=== PATIENT | female | born 1940 | race Caucasian/White ===

== ENCOUNTER 2020-11-03 18:25 | Inpatient (IN) | payer OTHER ==
[~2020-11-03] VITALS: Ht 167.6 cm; Wt 75.3 kg
[2020-11-03] MEDS ORDERED: LIPITOR40 MG PO (22:01)
[2020-11-03] MEDS ORDERED: GLYBURIDE 5 MG T5 M1 PO (22:03)
[2020-11-03] MEDS ORDERED: MAGNESIUM400 M1 PO (22:04)
[2020-11-03] MEDS ORDERED: METFORMIN HCL500 M3 PO (22:05)
[2020-11-03] MEDS ORDERED: SYNTHROID50 MCG PO (22:06)
[2020-11-03] MEDS ORDERED: VASERETIC 5-121 EACH PO (22:07)
--- NOTE | 2020-11-04 00:44 | NUR ---
Pt admitted from [facility] at 2030 via stretcher accompanied by EMS. A/OX4,VSS. Pt does get dyspnea on exertion,on 3L/NC on admision put titrated down to 2L/NC by RT. Denies pain on assessment.Up with SBA, RW/GB to bathroom. Complaints of dehydration from not eating/drinking much for 2 days,IVF infusing only complete the one bag from EMS per [facility]. NSR with PVCs on telemetry. Resting w/o any distress noted. Pt to transfer to [facility] per [facility] for higher care. Will update pt.
[2020-11-04] MEDS ORDERED: ASA81BEC PO (01:34)
[2020-11-04 01:41] LABS: URINE BILIRUBIN NEGATIVE (Negative); URINE BLOOD NEGATIVE (Negative); URINE CLARITY CLEAR; URINE COLOR YELLOW; URINE GLUCOSE-RANDOM* NEGATIVE (Negative); URINE KETONES NEGATIVE (Negative); URINE LEUKOCYTES 1+ (Negative); URINE NITRITE NEGATIVE (Negative); URINE PROTEIN (DIPSTICK) NEGATIVE (Negative); URINE SPECIFIC GRAVITY >= 1.030 (1.005-1.035); URINE UROBILINOGEN 0.2 E.U./dl (0.2-1.0)
--- NOTE | 2020-11-04 01:59 | NUR ---
PT TRANSFERRED FROM 4TH FLOOR. PT AOX4. O2 PER NC. IVF INTACT. LUNGS WITH WHEEZES. PT HAD BM. SOA WITH EXERTION ENCOURAGED TO CONTINUE USE OF BSC. PT VERBALIZED UNDERSTANDING OF NPO STATUS.
[2020-11-04 02:01] VITALS: BP 145/80
[2020-11-04 02:19] LABS: SQUAMOUS 4-10 Moderate /LPF (0-3); URINE RBC 3-10 Few /HPF (NONE SEEN); URINE WBC 6-15 Few /HPF (NONE SEEN); WBC CLUMPS Few (None Seen)
[2020-11-04 02:20] LABS: CASTS None Seen /LPF (None Seen); CRYSTALS None Seen /LPF (None Seen); MUCUS 4-6 Moderate strn/LPF (None Seen)
[2020-11-04 03:37] VITALS: BP 138/63
[2020-11-04 07:17] VITALS: BP 165/77
[2020-11-04 08:49] LABS: HEMATOCRIT 41.2 % (37.0-47.0); HEMOGLOBIN 13.7 gm/dL (12.0-15.0); MCH 30.4 pg (26.0-34.0); MCHC 33.3 g/dL (28.0-37.0); MCV 91.2 fL (80.0-100.0); RBC 4.52 mil/uL (4.20-5.00); RDW 13.7 % (10.5-14.5); WBC 11.3 thou/uL (4.0-11.0)
[2020-11-04 08:59] LABS: INR 0.98; PROTIME 10.7 Seconds (10.5-12.1)
[2020-11-04 09:10] LABS: ALBUMIN 2.8 g/dL (3.4-5.0); CALCIUM 8.8 mg/dL (8.5-10.1); CREATININE 0.8 mg/dL (0.6-1.0); TOTAL BILIRUBIN 0.5 mg/dL (0.2-1.0); TOTAL PROTEIN 6.2 g/dL (6.4-8.2)
[2020-11-04 11:32] VITALS: BP 160/73
[2020-11-04 12:54] LABS: CLARITY CLOUDY; COLOR BROWN; SOURCE THORACENTESIS; TOTAL VOLUME 65 mL
[2020-11-04 13:10] LABS: BF NUCLEATED CELLS 553 /mm3; BF RBC 38600 /mm3
--- NOTE | 2020-11-04 14:02 | 2DMMODE ---
[facility] [address] [address] 2 D/M-MODE ECHOCARDIOGRAM Name: PATITO SHERMAN Room #: 360-P ADM IN M.R.#: [id number] Admission: 11/03/20 Attend Phys: Mao Sandoval Discharge: Date of : 40 Report #: [id number] THIS REPORT FOR: cc: FAM - No family physician/PCP FAM - No family physician/PCP Albert Hernandez MD ~ APPROVED REPORT Study performed: 11/04/2020 13:11:57 EXAM: Comprehensive 2D, Doppler, and color-flow Echocardiogram Patient Location: Bedside Room #: 360 Status: routine BSA: 1.81 HR: 54 bpm BP: 160/73 mmHg Rhythm: NSR Other Information Study Quality: Adequate Indications Short of breath. Pleural effusion. Hx: HTN, HLP, DM. 2D Dimensions RVDd: 33.55 mm IVSd: 12.02 (7-11mm) LVOT Diam: 18.96 (18-24mm) LVDd: 38.91 mm PWd: 8.53 (7-11mm) Ascending Ao: 29.17 (22-36mm) LVDs: 26.91 (25-40mm) Left Atrium: 32.54 (27-40mm) Aortic Root: 28.15 mm Volumes Left Atrial Volume (Systole) Single Plane 4CH: 43.42 mL Single Plane 2CH: 47.19 mL LA ESV Index: 26.00 mL/m2 Aortic Valve AoV Peak Vijay.: 1.99 m/s AO Peak Gr.: 15.86 mmHg LVOT Max P.90 mmHg AO Mean Gr.: 8.15 mmHg [facility] [address] [place] [address] 2 D/M-MODE ECHOCARDIOGRAM Name: PATITO SHERMAN Room #: 360-P [facility] IN .R.#: [id number] Admission: 11/03/20 Attend Phys: Mao Joseph Mar Discharge: Date of : 40 Report #: [id number] AO V2 Mean: 1.34 m/s LVOT Max V: 1.41 m/s AO V2 VTI: 45.11 cm MAY Vmax: 1.99 cm2 Mitral Valve E/A Ratio: 0.8 MV Decel. Time: 282.17 ms MV E Max Vijay.: 0.85 m/s MV A Vijay.: 1.12 m/s MV PHT: 81.83 ms IVRT: 78.43 ms Pulmonary Valve PV Peak Vijay.: 1.20 m/s PV Peak Gr.: 5.74 mmHg Pulmonary Vein P Vein S: 0.52 m/s P Vein A: 0.32 m/s P Vein D: 0.30 m/s P Vein A Dur.: 124.6 msec P Vein S/D Ratio: 1.73 Tricuspid Valve TR Peak Vijay.: 2.28 m/s RAP Estimate: 5.00 mmHg TR Peak Gr.: 21.00 mmHg PA Pressure: 26.00 mmHg Left Ventricle The left ventricle is normal size. There is normal LV segmental wall motion. Mild basal septal hypertrophy is present. Left ventricular systolic function is normal. LVEF is 60%. Mild diastolic dysfunction is present (impaired relaxation pattern). Right Ventricle The right ventricle is normal size. The right ventricular systolic function is normal. Atria The left atrium size is normal. The right atrium size is normal. Aortic Valve Aortic valve is mildly calcified. No aortic regurgitation is present. There is no aortic valvular stenosis. Mitral Valve The mitral valve is normal in structure. Mild mitral annular calcification. Mild mitral regurgitation. No evidence of mitral valve [address] [address] 2 D/M-MODE ECHOCARDIOGRAM Name: PATITO SHERMAN Room #: 360-P [facility] IN .R.#: [id number] Admission: 11/03/20 Attend Phys: Mao Vicente Discharge: Date of : 40 Report #: [id number] stenosis. Tricuspid Valve The tricuspid valve is normal in structure. Trace tricuspid regurgitation. Estimated PAP is 26mmHg. Pulmonic Valve The pulmonary valve is normal in structure. Trace pulmonic regurgitation. Great Vessels The aortic root is normal in size. The ascending aorta is normal in size. IVC is normal in size and collapses >50% with inspiration. Pericardium There is no pericardial effusion. <Conclusion> The left ventricle is normal size. Left ventricular systolic function is normal. Mild diastolic dysfunction is present (impaired relaxation pattern). The right ventricle is normal size. The left atrium size is normal. Aortic valve is mildly calcified. Mild mitral regurgitation. Trace tricuspid regurgitation. Estimated PAP is 26mmHg. <ELECTRONICALLY SIGNED> By: Albert Hernandez MD 11/04/20 1402 140 140 Albert Hernandez MD /INF
[2020-11-04 15:27] VITALS: BP 146/66
--- NOTE | 2020-11-04 17:48 | NUR ---
ASSUMED PATIENT CARE AT 0700. A/O X4. PLEASANT. HAD THORACENTESIS TODAY 1.7L FLUID MOVED. TOLERATED WELL. UP AD BERNARDO. COUGH. SLOWLY TOWARDS POC GOALS,
[2020-11-04 20:00] VITALS: BP 129/66
--- NOTE | 2020-11-05 02:24 | NUR ---
PROGRESS PT A/O X4. UP WITH SBA GAIT STEADY. IV ANTIBIOTICS GIVEN ORDERED. PT ON 3 LITERS AT START OF SHIFT SATS IN HIGH 90'S, TITRATED TO 2 LITERS TOLERATING WELL. LUNG SOUNDS DIMINISHED, AND PT HAS A STRONG FREQUENT COUGH BRINGING UP THIN CLEAR SPUTUM. IV TO RIGHT HAND SALINE LOCKED FLUSHED WITHOUT DIFFICULTY. TELE INTACT READING SR WITH RATES IN 60'S. ACCUCHECKS CONTINUE WNL NO SSI INDICATED. VOIDING QS, DENIES PAIN. HOPING TO DISCHARGING HOME AND FOLLOWING UP WITH AN OUTPATIENT.
[2020-11-05 04:55] VITALS: BP 138/59
[2020-11-05 07:17] LABS: ABSOLUTE NEUTROPHILS 6.9 thou/uL (1.4-8.2); BASOPHILS 0.6 % (0.0-2.0); EOSINOPHILS 2.4 % (0.0-3.0); HEMOGLOBIN 13.5 gm/dL (12.0-15.0); LYMPHOCYTES 17.7 % (24.0-44.0); MCH 30.6 pg (26.0-34.0); MCHC 33.7 g/dL (28.0-37.0); MONOCYTES 8.4 % (1.0-8.0); PLATELET COUNT 287 thou/uL (150-400); POLYS 70.9 % (36.0-66.0); RBC 4.39 mil/uL (4.20-5.00); RDW 13.7 % (10.5-14.5); WBC 9.7 thou/uL (4.0-11.0)
[2020-11-05 07:23] VITALS: BP 136/55
--- NOTE | 2020-11-05 09:30 | NUR ---
PT ADMITTED WITH PLEURAL EFFUSION DX. 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 PT STATED SHE DOES NOT USE ANY DMES. PT HAS NO HX WITH HH OR SNF. PT DENIES HX WITH HOME HEALTH OR SKILLED.
--- NOTE | 2020-11-05 11:24 | NUR ---
ORDERS RECEIVED FOR PT EVAL AND TREAT. 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 USES 2L O2 AT HOME BUT HAD TO TURN IT UP TO 3L LAST WEEK WHEN SHE WAS HAVING DIFFICULTIES BREATHING. NO FALLS. NO AD USE. STATED 'NORMALLY I'M HEALTHY A HORSE.' REPORTED 'I HAVE A MASS IN THE LOWER PART OF THAT R LUNG.' ON 2L O2 W/ SATS 93%. SITTING AT EOB. DENIED N/T AND PAIN. POLITELY DECLINING PT NEEDS AT THIS TIME. STATED HER SON WAS ON HIS WAY TO GET HER AND SHE WAS DISCHARGING TODAY. OBSERVED Pt WALKING TO BATHROOM W/O AD AND MANAGING O2 TUBING ON HER OWN FROM DOORWAY OF ROOM. AO*4. ACUTE PT TO SIGN OFF.
--- NOTE | 2020-11-05 12:28 | NUR ---
CM FAXED O2 ORDER TO KAYL[facility] [phone].
[2020-11-05 12:38] VITALS: BP 136/55
--- NOTE | 2020-11-05 15:06 | NUR ---
PATIENT DC TO HOME. PATIENT AND AT BEDSIDE RECEIVED DC PAPERWORK INFORMATION AND INSTRUCTIONS. ALL QUESTIONS ANSWERED. PATIENT DC TO HOME ON 2L NC VIA PRIVATE VEHICLE. IV DC'D WITHOUT COMPLICATIONS. NO C/O CHEST PAIN BUT DOES HAVE SHORTNESS OF BREATH WITH EXCERTION BUT HAS NOT PROGRESSED OR WORSENED.
[2020-11-05 17:31] LABS: SOURCE THORACENTESIS
[2020-11-06 16:06] LABS: BODY FLUID ALBUMIN 2.8 g/dL (Not Estab.); BODY FLUID AMYLASE 35 U/L (()); BODY FLUID GLUCOSE 90 mg/dL (()); BODY FLUID LDH 686 IU/L (()); BODY FLUID PROTEIN 4.1 g/dL (())
--- NOTE | 2020-11-09 18:06 | PATH ---
[facility] [place] [address] [address] PATHOLOGY RPT PROCEDURE Name: PATITO SHERMAN Room #: 360-P DIS IN M.R.#: [id number] Admission: 11/03/20 Date of : 40 Discharge: 11/05/20 Report #: [id number] Path Case #: [id number] Note [facility] Accession Number: [id number] TESTS RESULT FLAG UNITS REF RANGE LAB Clinician Provided Cytology Information No. of containers..01 Other (Miscellaneous) Source: [A] 01 CHESTFLD DIAGNOSIS: [A] 02 CHESTFLUID POSITIVE FOR MALIGNANT CELLS. 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 Examination shows multiple collections of malignant cells forming glands in three-dimensional clusters. Multiple properly-controlled immunohistochemical stains are performed on the formalin-fixed cell block material. The tumor cells show strong nuclear reactivity with TTF-1, and strong membranous reactivity with BEREP4. The tumor cells show no reactivity with Calretinin, Desmin, HBME-1, WT-1 as well as ER. The non-reactive immunohistochemical stains argue against an epithelioid malignant mesothelioma as well as metastatic breast cancer. Co-review: Dr. Lucas Tipton has seen correspondence representative slides of this case and concurs with the diagnosis. Findings of this case are communicated to Dr. Ovi Naqvi at approximately 10:45 a.m. on 11/09/2020. (IUV:mml; 11/09/2020) Pathologist ICD10: 02 J91.0 Signed out by: Keshia Mckeon MD, Pathologist NPI- [id number] Performed by: Marcell Lim, Chemistry Lecturer ([facility]) Gross description: 01 20ML, CLEAR RED, 1 TP 1 CB /LCS 11/09/2020 1104 Local FLAG LEGEND: L-Low Normal,H-High Normal,LL-Alert Low,HH-Alert High <-Panic Low,>-Panic High,A-Abnormal,AA-Critical Abnormal Performed at: 01 [facility] [address] [place] [address] Lucas Tipton MD, 02 [facility] [address] [place] [address] PATHOLOGY RPT PROCEDURE Name: PATITO SHERMAN Room #: 360-P DIS IN M.R.#: [id number] Admission: 11/03/20 Date of : 40 Discharge: 11/05/20 Report #: [id number] Path Case #: [id number] [address] [place] [address] Keshia Mckeon MD, Specimen Comment: A courtesy copy of this report has been sent to [phone] Specimen Comment: Report sent to Performed at: 01 [facility] [address], [place], [place] [id number] MD Lucas Tipton MD Phone: [phone]
== END 2020-11-05 15:15 | disposition home or self-care (01) | DRG 193 ==
LOC: 4W 18:25 → 3W 20:43 → 4W 20:43 → 3W 11-04 01:54
PROVIDERS: Internal Medicine Pulmonary Disease; Nurse Practitioner Family; ADMIT Hospitalist; ATTEND Hospitalist
PROC: 0W993ZZ Drainage of Right Pleural Cavity, Percutaneous Approach (ICD-10-PCS; principal; 2020-11-04)
DX: J18.9 Pneumonia, unspecified organism (principal); J96.01 Acute respiratory failure with hypoxia; J91.8 Pleural effusion in other conditions classified elsewhere; J98.11 Atelectasis; I10 Essential (primary) hypertension; E78.5 Hyperlipidemia, unspecified; E03.9 Hypothyroidism, unspecified; R53.81 Other malaise; E11.9 Type 2 diabetes mellitus without complications; Z88.8 Allergy status to other drugs, medicaments and biological substances; Z82.49 Family history of ischemic heart disease and other diseases of the circulatory system; Z87.891 Personal history of nicotine dependence; Z80.3 Family history of malignant neoplasm of breast; Z80.1 Family history of malignant neoplasm of trachea, bronchus and lung; Z80.6 Family history of leukemia
CPT/HCPCS: 10045; 10879

== ENCOUNTER 2020-11-16 12:16 | Inpatient (IN) | payer OTHER ==
[~2020-11-16] VITALS: Ht 167.6 cm; Wt 70.9 kg
[~2020-11-16 12:16] MED LIST: ASA81BEC PO; GLYBURIDE 5 MG T5 M1 PO; LIPITOR40 MG PO; MAGNESIUM400 M1 PO; METFORMIN HCL500 M3 PO; SYNTHROID50 MCG PO; VASERETIC 5-121 EACH PO
[2020-11-16 12:20] VITALS: BP 134/89
[2020-11-16 13:09] LABS: ABSOLUTE NEUTROPHILS 12.1 thou/uL (1.4-8.2); BASOPHILS 0.3 % (0.0-2.0); EOSINOPHILS 0.3 % (0.0-3.0); HEMATOCRIT 41.2 % (37.0-47.0); HEMOGLOBIN 13.8 gm/dL (12.0-15.0); LYMPHOCYTES 6.9 % (24.0-44.0); MCHC 33.5 g/dL (28.0-37.0); MCV 89.6 fL (80.0-100.0); MONOCYTES 7.7 % (1.0-8.0); PLATELET COUNT 314 thou/uL (150-400); POLYS 84.8 % (36.0-66.0); RBC 4.59 mil/uL (4.20-5.00); RDW 13.7 % (10.5-14.5); WBC 14.3 thou/uL (4.0-11.0)
[2020-11-16 13:20] LABS: ANION GAP 8 mmol/L (7-16); BUN 20 mg/dL (7-18); CALCIUM 9.8 mg/dL (8.5-10.1); CHLORIDE 96 mmol/L (98-107); CO2 27 mmol/L (21-32); CREATININE 0.8 mg/dL (0.6-1.0); GLUCOSE 122 mg/dL (74-106); POTASSIUM 4.5 mmol/L (3.5-5.1); SODIUM 131 mmol/L (136-145)
[2020-11-16 13:36] LABS: ALBUMIN 3.3 g/dL (3.4-5.0); SGOT 25 U/L (15-37); SGPT 36 U/L (14-59); TOTAL BILIRUBIN 0.8 mg/dL (0.2-1.0); TOTAL PROTEIN 6.9 g/dL (6.4-8.2); TROPONIN-I <0.06 ng/mL (<0.06)
[2020-11-16 13:48] LABS: BE(vivo) 1.6 mmol/L (-2 to +3); HCO3 24.7 mmol/L (22.0-26.0); PCO2 34.1 mmHg (35.0-45.0); PO2 111.6 mmHg (80.0-100.0); pH 7.477 (7.360-7.450); sO2 98.4 % (92.0-98.0)
[2020-11-16 13:50] LABS: APTT 23.2 Seconds (24.5-32.8); INR 0.98; PROTIME 10.7 Seconds (10.5-12.1)
--- NOTE | 2020-11-16 14:53 | EKG ---
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 : 1940 Requested By: Lucia Miller Order Number: [id number] MD: Israel Freire Measurements Intervals Fraser Rate: 77 P: 73 NE: 161 QRS: -12 QRSD: 103 T: 61 QT: 375 QTc: 425 Interpretive Statements Sinus rhythm Compared to ECG 04/25/1996 19:32:00 Sinus bradycardia no longer present T-wave abnormality no longer present Electronically Signed On 11-16-2020 14:53:34 CDT by Israel Freire [email or web address] <ELECTRONICALLY SIGNED> By: Israel Freire MD, [facility] 11/16/20 1453 1234 1234 Israel Freire MD, FACC /EPI
[2020-11-16 15:39] LABS: CLARITY TURBID; COLOR RED; SOURCE RIGHT CHEST; TOTAL VOLUME 33 mL
[2020-11-16 15:52] LABS: BF NUCLEATED CELLS 548 /mm3; BF RBC 102805 /mm3
[2020-11-16 16:06] VITALS: BP 121/51
[2020-11-16 16:26] LABS: BF MACROPHAGE 23 %; BF NEUTROPHILS 18 %
[2020-11-16 16:39] VITALS: BP 122/47
--- NOTE | 2020-11-16 19:35 | NUR ---
PATIENT ARRIVED FROM ED AT APPROX. 1700. ADMISSIONS HX AND EDUCATION COMPLETE. PATIENT ON TELE AND SR. DENIES PAIN. EDUCATED ON USING CALL LIGHT AND ORIENTED TO ROOM. A&OX4 AND PLEASANT, FAMILY AT BEDSIDE. ABX INFUSING ON R FA W NO ISSUES. ENDORSED TO CONTRACT DESIGN AGENT.
[2020-11-16 20:00] VITALS: BP 112/58
--- NOTE | 2020-11-16 20:12 | NUR ---
PATIENT AND SON, SON IN LAW & DTR IN LAW ALL STATED SHE WANTS TO BE RESUCITATED IF HEART STOPS; A FULL CODE
--- NOTE | 2020-11-17 03:05 | NUR ---
PT CARE ASSIST WITH FAMILY AT BEDSIDE AT 1900.PT IS A/O X4.PT IS UP WITH X1 ASSIST TO BSC .PT IS ON 3L OF O2 VIA NC.PT IS ACCUCHECKS ACHS WITH LOW SSI.PT HAS LT LUNG PLEURAL EFFUSION.PT APPEARED TO BE IN NO ACUTE DISTRESS.WILL CONTINUE TO MONITOR PER POC
[2020-11-17 06:54] LABS: CALCIUM 8.9 mg/dL (8.5-10.1); CREATININE 0.7 mg/dL (0.6-1.0)
[2020-11-17 08:00] VITALS: BP 138/53
[2020-11-17 09:05] LABS: SOURCE RIGHT CHEST
--- NOTE | 2020-11-17 11:16 | NUR ---
PT ADMITTED RELATED TO ACUTE RESPIRATORY FAILURE. CM REVIEWED CHART AND SPOKE WITH CARE TEAM. CM MET WITH PT AND DTR IN LAW DECLAN WILSON AT BEDSIDE THIS DAY. PT APPEARED TO BE A&O X4. CM ROLE INTRODUCED. PT INDICATED SHE LIVES IN A HOUSE WITH HER SPOUSE. 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 PT HAD DISCHARGED HOME FROM HERE 11/05/20 WITH APRIA O2 AT 2L. PT HAD BEEN INDEPENDENT WITH GAIT AND ADLS HIM CODER. PT AND DIL INDICATED THAT PT'S DTR SERG HAS BEEN STAYING WITH PT AND SPOUSE TO ASSIST. THEY INDICATED THAT SERG IS CURRENTLY STAYING WITH SPOUSE. PT HAD TOHORACENTESIS UPON ADMISSION. 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 PT INDICATED SHE PLANS TO RETURN HOME WITH FAMILIAL SUPPORT ONCE MEDICALLY STABLE. PT INDIATED SHE DOESN'T WANT HH SERVICES SHE AND SPOUSE ARE ISOLATED ON [address] AND SHE CAN'T GET COVID SHOT. FAMILY ARE IN AGREEMENT AND INDIATED THEY WILL ASSIST. CM FOLLOWING REGARDING DC PLANNING. PT IS ON IV VANC AND PULM IS CONSULTED.
--- NOTE | 2020-11-17 14:35 | NUR ---
ASSUMED PT CARE THIS AM. PT A&OX4, ABLE TO MAKE NEEDS KNOWN. PATIENT COMPLAINS OF NO PAIN, NUMBNESS, OR TINGLING. PATIENT REQUESTED HOME MEDICATIONS TO BE RESTARTED, DISCUSSED THIS WITH THE HOSPITALIST AND MEDICATIONS ORDERED. PATIENT REQUESTING BRAND NAME SYNTHROID ADVISING THAT GENERIC GIVES HER REDNESS AND BURNING SENSATION, ALLERGY ADDED AND PHARMACY AND PHYSICIAN NOTIFIED. IV REMAINS PATENT, FLUIDS INFUSING. FALL PRECAUTIONS ARE IN PLACE, CALL LIGHT WITHIN REACH.
[2020-11-17 14:36] VITALS: BP 128/55
[2020-11-17 20:25] VITALS: BP 120/52
--- NOTE | 2020-11-18 01:49 | NUR ---
ASSESSED AT START OF SHIFT. PT RESTING IN BED. ON ASSESSMENT IV ON RT FA INFILTRATED WITH SWELLING. OLD IV TAKEN OUT. NEW IV INSERTED ON LEFT HAND 22G. PT NPO AT MIDNIGHT FOR SURGERY TOMORROW. UP WITH ASSISTX1 TO THE BSC. FALL PREC IN PLACE. PT ON 3L OF O2 BASELINE. CALL LIGHT AT REACH AND WILL CONT TO MONITOR.
--- NOTE | 2020-11-18 11:43 | NUR ---
Per nursing note pt leftunit for surgery at 0640 this am. Pt had bronchoscopy, right video assisted thoracoscopy, wedge resection R lung, pleural biopsy, chemical pleurodesis, and placement of Pleurx catheter. Pt was subsequently transfered to ICU room 251 for continued medical monitoring. Cm team to follow as indicated with dc planning.
--- NOTE | 2020-11-18 13:56 | NUR ---
PT ARRIVED FROM OR TO ICU ROOM 251 ACCOMPANIED BY NURSING STAFF. PT ALERT AND ORIENTED X3. PT ON 10MG/HR CARDENE GTT AND NS@100ML/HR ON ARRIVAL TO ICU. RIGHT LATERAL CHEST TUBE TO SUCTION AT -20CM. BALLARD IN PLACE. PT NOT COMPLAINING OF NAUSEA AND VOMITING.
[2020-11-18 19:07] LABS: BODY FLUID ALBUMIN 2.6 g/dL (Not Estab.); BODY FLUID AMYLASE 37 U/L (()); BODY FLUID GLUCOSE 46 mg/dL (()); BODY FLUID LDH 533 IU/L (()); BODY FLUID PROTEIN 4.1 g/dL (())
[2020-11-19] VITALS (22 sets, daily range): BP systolic 100–130; BP diastolic 35–62
[2020-11-19 05:26] LABS: HEMATOCRIT 31.2 % (37.0-47.0); MCH 30.8 pg (26.0-34.0); MCHC 34.4 g/dL (28.0-37.0); MCV 89.4 fL (80.0-100.0); RBC 3.49 mil/uL (4.20-5.00); RDW 13.5 % (10.5-14.5); WBC 13.1 thou/uL (4.0-11.0)
[2020-11-19 05:38] LABS: CALCIUM 7.8 mg/dL (8.5-10.1); CREATININE 0.7 mg/dL (0.6-1.0); POTASSIUM 3.2 mmol/L (3.5-5.1)
[2020-11-19 06:02] LABS: HEMOGLOBIN 10.7 gm/dL (12.0-15.0)
--- NOTE | 2020-11-19 07:50 | HC ---
[facility] [place] [address] CONSULTATION Name: PATITO SHERMAN Room #: 251-P ADM IN M.R.#: [id number] Admission: 11/16/20 Attend Phys: Clinton Alvarado MD Discharge: Date of : 40 Report #: [id number] THIS REPORT FOR: cc: FAM - No family physician/PCP FAM - No family physician/PCP Michel Diaz MD ~ cc: Clinton Alvarado MD, Kyle Napier MD, Hood Ramirez DO, Natalie Chatterjee, [facility]- DATE OF SERVICE: 11/17/2020 REASON FOR CONSULTATION: Right malignant pleural effusion. HISTORY OF PRESENT ILLNESS: The patient is a very pleasant 80-year-old female from the [place] area who had some shortness of air. Chest x-ray showed a pleural effusion. She had a CAT scan after it was tapped about 2 weeks with no specific lung nodules. She had it tapped again. Cells are seen that looks like an adenocarcinoma that are TTF-1 positive suggesting this could be a lung primary. The patient has never had a colonoscopy, though she does not have GI symptoms. She is not iron deficiently anemic. She also had her last mammogram about a year ago down in [place]. She has a cough. No fevers, no chills, no new arm or leg swelling. No skin rash. PAST MEDICAL HISTORY: She has a history of diabetes type 2, hyperlipidemia, hypothyroidism, hypertension, hysterectomy for a fallen bladder, breast surgery, biopsy in the past, benign. FAMILY HISTORY: Notable for a mother who had breast cancer at age 80, colon cancer at age 79. The patient's sister with breast cancer at age 40. She does not know if any of these people had genetic testing. Maternal grandmother who had cancer all over. Maternal great grandmother who may have had breast cancer. Father had some type of bone marrow cancer. Two of the father's brothers had lung cancer. One of the father's brother had kidney cancer. One of the sisters of her father had cancer all over. SOCIAL HISTORY: The patient quit smoking about 20 years ago. No significant alcohol, no street drugs. She is retired. Enjoys quilting. Has a cat that is about 15 years old. She also has a family member present in the room, who is her [id number], who is a transplant nurse at [employer], who mentions that she has had several friends or acquaintances, who I am their cancer doctor. The patient also enjoys reading sort of a science fiction fantasy series where people turn into leopards as part of the story line. MEDICATIONS: At this time includes vancomycin 750 q.12, Zosyn 3.375 q.8, insulin on a sliding scale, Tylenol p.r.n. [address] [address] CONSULTATION Name: PATITO SHERMAN Room #: 251-P [facility] IN M.R.#: [id number] Admission: 11/16/20 Attend Phys: Clinton Alvarado MD Discharge: Date of : 40 Report #: [id number] PHYSICAL EXAMINATION: GENERAL: The patient appears her stated age. Height is 5 feet 6 inches, 167.6 cm; weight 157.4 pounds, which is 71.4 kilograms. VITAL SIGNS: Blood pressure is 112/58, O2 sat 97% on room air, pulse 62, temperature 97.9. NEUROLOGIC: Mood, she is alert, pleasant, conversant. Neurologically, speech and thought pattern are normal. Moving extremities. LUNGS: Clear except for dull in the right base. HEART: Regular rate. No enlarged lymph nodes in the supraclavicular, cervical, axillary region. ABDOMEN: Slightly obese, nontender, no masses. EXTREMITIES: Without clubbing, cyanosis or edema. LABORATORY DATA: Lab results notable for creatinine of 0.7, transaminases normal, alkaline phosphatase normal. Coags normal. White count 14.3, hemoglobin 13.8, MCV 89.6, platelets 314. Differential normal. COVID negative. UA pending. ASSESSMENT AND PLAN: 1. 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 Discussed with the patient and also had the opportunity to talk with Dr. Mariano Kee who will be seeing the patient later today. He is considering a VATS procedure and told him if he is able to see tissue that we do additional testing on, that would be very helpful. Discussed with the patient and her [id number] that we would like to find additional tumor for testing for mutations to see if there is targeted mutation or PD-L1 expression, standard chemotherapy, though we could. Also talked about the possibility of outpatient PET scan. We will await results of VATS procedure, if that is the direction we go. We will also await results of CT abdomen and pelvis to see if other metastatic disease or occult primaries are found. 2. Pleural effusion. Defer to pulmonary and cardiothoracic draining procedures. 3. Diabetes. Sliding scale insulin. 4. Hyperlipidemia, per others. 5. Hypothyroid, replaced per others. 6. Hypertension, meds per others. We will follow with you. <ELECTRONICALLY SIGNED> By: Michel Diaz MD 11/19/20 0750 0754 2117 Michel Diaz MD /marely
--- NOTE | 2020-11-19 07:59 | NUR ---
PT UP IN CHAIR THIS AM. DENIES PAIN AT SURGICAL SITE. NO SOA, GOOD COUGH EFFORT. IS UP TO 750L. CT-SMALL OF OF SEROSANQU DRAINAGE. 02SAT WNL. PT PROGRESSING TOWARD GOALS. CONT PLAN OF CARE
--- NOTE | 2020-11-19 18:06 | PATH ---
[facility] [address] [place] [address] PATHOLOGY RPT PROCEDURE Name: PATITO SHERMAN Room #: 251-P ADM IN M.R.#: [id number] Admission: 11/16/20 Date of : 40 Discharge: Report #: [id number] Path Case #: [id number] Note [facility] Accession Number: [id number] TESTS RESULT FLAG UNITS REF RANGE LAB Clinician Provided Cytology Information No. of containers..01 Other (Miscellaneous) Source: [A] 01 CHEST FLUID DIAGNOSIS: [A] 02 CHEST FLUID POSITIVE FOR MALIGNANT CELLS. SCANT CELLULARITY. THIS INTERPRETATION INCLUDES EVALUATION OF A CELL BLOCK. RARE GROUPS OF MALIGNANT EPITHELIAL CELLS MORPHOLOGICALLY SIMILAR TO THE PRIOR SPECIMEN (SEE REPORT [id number] FOR DETAILS). Pathologist ICD10: 02 J91.0 Signed out by: 02 Keshia Mckeon MD, Pathologist NPI- [id number] Performed by: Jeanie Lancaster Machine Sole Leveler ([facility]) Gross description: 01 10ML, BLOODY RED, 1 TP 1CB /LCS 11/18/2020 1500 Local FLAG LEGEND: L-Low Normal,H-High Normal,LL-Alert Low,HH-Alert High <-Panic Low,>-Panic High,A-Abnormal,AA-Critical Abnormal Performed at: [address] [place] [address] Lucas Tipton MD, [address] [address] Keshia Mckeon MD, Performed at: [address], [place], [place] [id number] MD Lucas Tipton MD Phone: [phone]
[2020-11-20] VITALS (17 sets, daily range): BP systolic 115–140; BP diastolic 34–82
--- NOTE | 2020-11-20 15:41 | NUR ---
Chart review, discussed during los and unite rounds. Has chest tube. Possible able to move out of icu to ccu when have bed opening. No anticipated dc over the weekend. Will cont following as needed for dc needs.
--- NOTE | 2020-11-20 19:56 | NUR ---
PATIENT CCU STATUS. A/OX4. ON 2L NC WHICH IS HER BASELINE FROM HOME. UP TO THE CHAIR FOR MEALS. WORKED WITH PT/OT. ACCUCHECKKhadijah GRIFFITHS, TREATED PER JUN. PRN HYDROCODONE GIVEN X2 PER REQUEST. VOICES INCREASED PAIN WITH MOVEMENT. RIGHT SIDE CHEST TUBE REMAINS TO -20 SUCTION. NOTED EDEMA TO LOWER EXTREMTITES, ORDERED IRIS HOSE PER DR. WEATHERS AND ENCOURAGED PATIENT TO ELEVATE LEGS. IV ABX GIVEN. FAMILY AT BEDSIDE THROUGH OUT THE DAY. REPORT GIVEN TO NIGHT RN.
[2020-11-21 04:45] VITALS: BP 117/45
--- NOTE | 2020-11-21 06:16 | NUR ---
Patient slept well through the night. Heart rate and rhythm stable. Adeuquate oxygenation on 2L per NC. Up to BSC to void, adequate amounts. No temp. Chest tube drainage marginal. No family called this shift. Patient is progressing towards goals. See documentation on interventions for assessment details.
[2020-11-21 08:23] VITALS: BP 112/48
[2020-11-21 12:01] VITALS: BP 114/93
[2020-11-21 16:00] VITALS: BP 131/86
[2020-11-21 20:12] VITALS: BP 153/73
[2020-11-22 03:04] VITALS: BP 154/68
[2020-11-22 07:31] VITALS: BP 153/50
--- NOTE | 2020-11-22 07:56 | NUR ---
ASSUMED CARE OF PT AT 1900, PT IS A/O X 4. CHEST TUBE IN PLACE, WHITH MINIMAL DRAINAGED AND LEAK NOTED THAT PULMONARY IS AWARE OF. PT DENIES SOA. ASSESSMENT COMPLETED NOTED. WILL CONTINUE TO WORK TOWARDS PT'S POC
--- NOTE | 2020-11-22 09:05 | HC ---
[facility] [address] CONSULTATION Name: PATITO SHERMAN Room #: 211-P [facility] IN M.R.#: [id number] Admission: 11/16/20 Attend Phys: Clinton Alvarado MD Discharge: Date of : 40 Report #: [id number] THIS REPORT FOR: cc: FAM - No family physician/PCP FAM - No family physician/PCP Mariano Kee MD ~ DATE OF SERVICE: 11/17/2020 We were asked to see the patient by Dr. Alvarado and Dr. Napier. HISTORY OF PRESENT ILLNESS: The patient is an 80-year-old with large right pleural effusion, this was diagnosed in early October. Outpatient thoracentesis was done for approximately 2 liters of fluid in early October. The patient had recrudescence of the effusion with shortness of breath and generalized fatigue and was readmitted yesterday. Thoracentesis was done once again for approximately [address] scan afterwards showed incomplete resolution of the effusion. No obvious pulmonary parenchymal issues were noted, but the lung was not fully expanded. According to the chart, pathology reveals malignancy suspected adenocarcinoma. In the hospital, the patient has done generally well, but she is still on oxygen and is awaiting more definitive treatment. PAST MEDICAL HISTORY: Significant for hypertension, hyperlipidemia, diabetes mellitus type 2, hypothyroidism. CURRENT MEDICATIONS: Atorvastatin, glyburide, magnesium, metformin, levothyroxine, enalapril, hydrochlorothiazide. ALLERGIES: MENTIONED, LIDOCAINE AND THE OTHER "MARISA DRUGS," ELEMENTAL MERCURY. SOCIAL HISTORY: The patient is a former smoker. [place] . REVIEW OF SYSTEMS: GENERAL: No fever or chills. Does have generalized weakness. EYES: Wears glasses. No vision change. HEENT: No headache, no hearing problems, no sinus problems. RESPIRATORY: As mentioned, short of breath, also associated with productive cough of clear sputum. No hemoptysis. CARDIAC: Denies angina. Denies palpitations. GASTROINTESTINAL: Denies nausea, vomiting, diarrhea or blood. GENITOURINARY: Denies urgency, frequency, blood. MUSCULOSKELETAL: Has back pain. Denies other joint or extremity pain. [facility] [address] [place] [address] CONSULTATION Name: PATITO SHERMAN Room #: 211-P [facility] IN [facility].#: [id number] Admission: 11/16/20 Attend Phys: Clinton Alvarado MD Discharge: Date of : 40 Report #: [id number] SKIN: Denies rash or infection. NEUROLOGIC: Denies focal motor or sensory dysfunction. ENDOCRINE: Denies goiter or tremor. HEMATOLOGIC: Denies bruisability or bleeding. PHYSICAL EXAMINATION: GENERAL: The patient is sitting at the side of the bed, enjoying breakfast. VITAL SIGNS: Temperature 36.6, pulse 64, respiratory rate 16, blood pressure 112/58, O2 sat 97% on 3 L. HEENT: No scleral icterus. No arcus. NECK: No mass. I hear no bruit. CHEST: Decreased breath sounds, right chest. Left side is clear. HEART: Rhythm regular with a grade 1-2 systolic murmur left chest. ABDOMEN: Soft. No mass, no tenderness. EXTREMITIES: No clubbing, cyanosis or edema. SKIN: No rash or infection. NEUROLOGIC: No gross motor or sensory dysfunction. PSYCHIATRIC: Oriented x3. Shows insight into problem, very pleasant lady. I reviewed the current CT scan findings and discussed them in the context of the diagnosis and the recent thoracentesis. I have recommended that we perform a video-assisted thoracoscopy to remove the remainder of the fluid if possible and obtain a satisfactory tissue sample. At this time, we can also place a PleurX catheter should the chemical pleurodesis not be effective. Risks and details, options and alternatives were discussed with the patient and her daughter (a RN). They both understand and agree with this approach. Thank you for the consult. <ELECTRONICALLY SIGNED> By: Mariano Kee MD 11/22/20 0905 [id number] Mariano Kee MD /nt
--- NOTE | 2020-11-22 09:05 | O ---
[facility] [place] [address] OPERATIVE REPORT Name: PATITO SHERMAN Room #: 211-P ADM IN M.R.#: [id number] Admission: 11/16/20 Attend Phys: Clinton Alvarado MD Discharge: Date of : 40 Report #: [id number] THIS REPORT FOR: cc: FAM - No family physician/PCP FAM - No family physician/PCP Mariano Kee MD ~ DATE OF SERVICE: 11/18/2020 PREOPERATIVE DIAGNOSIS: Malignant right pleural effusion. POSTOPERATIVE DIAGNOSIS: Malignant right pleural effusion. OPERATION: Bronchoscopy, right video-assisted thoracoscopy, wedge resection of right lung pleural biopsy, chemical pleurodesis with doxycycline and placement of PleurX catheter. SURGEON: Mariano Kee MD ANESTHESIA: General. 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 The patient has recurrent pleural effusion that has required several thoracenteses with incomplete drainage of the fluid. In addition to this problem, more tissue has been requested for cell marker studies. FINDINGS AND TECHNIQUE: After general anesthesia was established, flexible diagnostic bronchoscopy was performed. No specific endobronchial lesions were noted; however, there was extrinsic compression of most of the segmental bronchi of the middle and lower lobe on the right. Double lumen endotracheal tube was placed and its position ascertained under bronchoscopic guidance. The patient was positioned with right side up. Exposure was obtained through typical video-assisted thoracoscopy ports. Initially, there was a large pleural effusion that was drained. This amounted to approximately 2600 mL of bloody pleural fluid. After the fluid had been drained, inspection of the right chest was performed. There were multiple pleural implants on the visceral and parietal pleura. [employer] samples of these were taken for both pathology and marker studies. After the biopsies of the pleura and the lung were taken (wedge resection was done for the lung biopsy), the PleurX catheter was placed. [facility] [address] [place] [address] OPERATIVE REPORT Name: PATITO SHERMAN Room #: 211-P [facility] IN [facility].#: [id number] Admission: 11/16/20 Attend Phys: Clinton Alvarado MD Discharge: Date of : 40 Report #: [id number] Incisions were made in the premarked places along the right anterolateral epigastric area and the PleurX catheter was brought through the skin exit site through the chest entry site. Needle catheter technique was used. A needle was placed into the right chest and under fluoroscopic guidance and then a guidewire was placed through the needle and using Seldinger technique and graduated dilators, the large peel-away dilator and sheath were placed and through this, the PleurX catheter was placed into the chest. We made sure that there was good basilar placement of the catheter. The catheter was secured in place after the peel-away sheath was removed. At this point, a 28-Colombian chest tube was brought through the lowest port. The doxycycline solution for chemical pleurodesis was then placed through this catheter. The video-assisted thoracoscopy ports were closed in layers and then the PleurX catheter incisions were closed. PleurX catheter was placed on it under a sterile dressing to be used at a later date. The patient tolerated all of this well and after the chest x-ray was taken to ascertain good tube placement, the patient was taken to the recovery area. All counts were reported as correct. <ELECTRONICALLY SIGNED> By: Mariano Kee MD 11/22/20 0905 [id number] Mariano Kee MD /nt
[2020-11-22 16:33] VITALS: BP 170/52
[2020-11-22 20:00] VITALS: BP 156/57
[2020-11-23 04:00] VITALS: BP 185/58
--- NOTE | 2020-11-23 06:40 | NUR ---
patients cares wasassumed at shift change. patient was assessed and meds were passed.vancomycin ordered by Dr. Frederick patient refused the antibiotics. pepercillin also refused. patient stated "I have cancer not an infection" PT. also stated that Dr. Frederick should not be ordering meds for her. Will pass this at shift change in hope that Dr. Kee can help with this. Rouning done reinforced the chest tube were it is leeking.
[2020-11-23 09:30] VITALS: BP 152/50
[2020-11-23 12:51] VITALS: BP 142/49
--- NOTE | 2020-11-23 14:11 | NUR ---
Assess due to length of stay. S/P [facility] 11/18, new malignant pleural effusion, suspicious lung source. Hx DM. BG 112-201. Intially with decreased appetite reported, now eating 75-100% meals. Moderate wt change 6 lb loss since early October. Pt able to voice food preferences. Low nutrition risk at this time
[2020-11-23 16:00] VITALS: BP 157/59
--- NOTE | 2020-11-23 18:06 | NUR ---
Spoke with patient and verified she [facility]. She reports she [facility] want [facility]. Discussed limited options in area. She is open to HH. Faxed referral to [facility] and [facility] for review. [facility] following.
[2020-11-23 20:00] VITALS: BP 162/67
[2020-11-24 05:00] VITALS: BP 179/75
[2020-11-24 08:00] VITALS: BP 163/62
[2020-11-24 12:00] VITALS: BP 152/49
--- NOTE | 2020-11-24 15:33 | NUR ---
spoke with [facility] Moser, [facility], [facility], [facility], [facility], all home health agencies either cannot accept insurance or do not service area. Spoke with patient who is agreeable to inquire into outpatient phys office. called and sp with [facility] at [facility]. She reports their office does not have tamara in office and inquire with outpatient clinic. in process of inquiring on out patient clinic
[2020-11-24 20:47] VITALS: BP 170/59
[2020-11-25 07:15] VITALS: BP 181/78
[2020-11-25 11:30] VITALS: BP 176/72
[2020-11-25 15:30] VITALS: BP 157/63
--- NOTE | 2020-11-25 17:29 | NUR ---
Patient with need for home health care for pleurx cath. [facility] declined due to no staff with [facility], [facility] does not cover area. Faxed referral last evening to [facility] out patient infusion. They did not rec fax. Refaxed this am. Plan to inquire into oncology clinic in [place] if can assist with draining pleurx cath. Spoke with patient and dtr in law. Dtr in law reports patients dtr has lupus and cannot assist, Dtrs spouse is going blind. Dtr in Law reports they live an hour away and cannot assist. She plans to have teaching as needed. discussed process of home health referral. [facility] reconsidering. [facility] following.
[2020-11-25 20:15] VITALS: BP 183/67
[2020-11-26 04:45] VITALS: BP 186/72
[2020-11-26 07:15] VITALS: BP 187/71
[2020-11-26 11:20] VITALS: BP 154/65
[2020-11-26 15:35] VITALS: BP 174/68
--- NOTE | 2020-11-26 17:49 | NUR ---
Spoke with patient. Alerted have exhausted home health agencies accepting for home health care. Offered swing bed unit at [facility] or any member of family to assist. Patient does not want skilled. She has not been vacinated and reports she does not want to be exposed to Covid. Sp with Corie at [facility] outpatient clinc. Alerted to Corie supplies for pleurx catheter are supplied to patient. She can bring in supplies. Sent Corie link for video regarding pleurx catheters so she can review. Faxed clinical information to [facility] outpatient clinic.
[2020-11-26 19:18] VITALS: BP 157/51
[2020-11-27] VITALS (11 sets, daily range): BP systolic 117–191; BP diastolic 69–122
[2020-11-27 03:07] LABS: HEMATOCRIT 28.9 % (37.0-47.0); HEMOGLOBIN 9.9 gm/dL (12.0-15.0); MCH 31.1 pg (26.0-34.0); MCHC 34.3 g/dL (28.0-37.0); MCV 90.6 fL (80.0-100.0); RBC 3.19 mil/uL (4.20-5.00); RDW 14.2 % (10.5-14.5)
[2020-11-27 03:37] LABS: CALCIUM 8.4 mg/dL (8.5-10.1); CREATININE 1.1 mg/dL (0.6-1.0); MAGNESIUM 2.1 mg/dL (1.8-2.4)
[2020-11-27 04:24] LABS: POTASSIUM 2.9 mmol/L (3.5-5.1)
[2020-11-27] MEDS ORDERED: NYSTATIN100000 UNI SWISH&SPIT (11:20)
[2020-11-27] MEDS ORDERED: HYDROCODON-ACE1 EAC7 PO (11:21)
[2020-11-27] MEDS ORDERED: VASOTEC10 MG PO (11:21)
[2020-11-27] MEDS ORDERED: MAXZIDE-25 MG1 EACH PO (11:22)
[2020-11-27] MEDS ORDERED: GLYBURIDE 5 MG T5 M1 PO (11:26)
[2020-11-27] MEDS ORDERED: PEPCID20 MG PO (11:26)
[2020-11-27] MEDS ORDERED: ONDANSETRON HCL4 M2 PO (14:42)
--- NOTE | 2020-11-27 18:16 | NUR ---
Pt dc'd to home today. Chest tube dc'd. Pleurax cath in place. Pt sent with 3 drain kits and dressing supply kits. Supplies ordered per [facility] [employer] for the Aspira drain system. Script/clinical/facesheet faxed to intake and confirmed. They will deliever early next week and call the pt to confirm. Dtr in law here at bedside all day and was instructed on drain system as a back and prn support for the pt. Outpt visits for dressing change and drainage schedule with the [facility] outpt specialty clinic ([facility]ie) for start of care Monday at 3pm. Pt to go to the main entrance registration 15minutes ahead and bring her supplies as they can not provide them. Pt and dtr in law agreeable to the plan. Dc summary/clinical and orders faxed to Corie at [facility] as well. Supplies and outpt appts confirmed with all parties. Pt to see CTS on 12/09 and ONc in two weeks. Pt has good support system for errands,meals, housekeeping and transport. Case closed.
--- NOTE | 2020-12-03 13:08 | PATH ---
[facility] [address] PATHOLOGY RPT PROCEDURE Name: PATITO SHERMAN Room #: 211-P [facility] IN M.R.#: [id number] Admission: 11/16/20 Date of : 40 Discharge: 11/27/20 Report #: [id number] Path Case #: [id number] [facility] Accession Number: [id number] . 01 Material submitted: . PART A: pleura - PLEURAL IMPLANT PART B: lung - LUNG NODULE . 01 Clinical history: . 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 02 Diagnosis: A. Pleural, pleural implant, biopsy: - POSITIVE FOR MALIGNANCY; METASATIC ADENOCARCINOMA (SEE COMMENT). . B. Lung, lung nodule, wedge biopsy: - POSITIVE FOR MALIGNANCY; EXTENSIVE INVOLVEMENT BY A MODERATELY DIFFERENTIATED ADENOCARCINOMA (PLEASE SEE COMMENT). Q 11/20/2020 1702 Local . 02 Comment: The most recent pleural fluid, [id number] (please see separate report for details) showed a metastatic adenocarcinoma. Multiple immunohistochemical stains were performed on that fluid and the tumor cells showed strong nuclear reactivity with TTF-1. It was conveyed by Dr. Mariano Kee that these biopsy tissues were obtained for "possible tumor markers". Therefore, additional immunohistochemical stains are not performed on these biopsy tissues. . Skin Installer focus was co-reviewed by Dr. Marielle Quezada who concurs with the interpretation of adenocarcinoma on 11/20/2020. The case was discussed with Dr. Mariano Kee in the evening of 11/20/2020. (IUV/db; 11/20/2020) . 02 Addendum: . Special studies report received from [facility], [address] [place] [address], [address], [place], [address], on case [id number], labeled with their number [id number], dated 11/26/2020. . PD-L1 [place] [address] PATHOLOGY RPT PROCEDURE Name: PATITO SHERMAN Room #: 211-P DIS IN M.R.#: [id number] Admission: 11/16/20 Date of : 40 Discharge: 11/27/20 Report #: [id number] Path Case #: [id number] Body Site: Left rib, lesion, biopsy. Body Site: Pleural, pleural implant, biopsy. Specimen Received: 1 paraffin block labeled [id number]. Fixative: 10% neutral buffered formalin. . Clinical History Metastatic adenocarcinoma, lung primary. . Results Table PD-L1 22C3 NSCLC Tumor Interpretation Proportion Score (TPS) [id number] 1% Expression- See Reference Ranges . . Reference Ranges: PD-L1 22C3 in Non-Small Cell Lung Cancer (NSCLC) TPS less than 1%: No Expression . TPS 1%-49%: Expression . Eligible for KEYTRUDA (pembrolizumab) monotherapy . NOT eligible for LIBTAYO (cemiplimab-rwlc) monotherapy . TPS equal to or greater than 50%: High Expression . Eligible for KEYTRUDA (pembrolizumab) monotherapy . Eligible for LIBTAYO (cemiplimab-rwlc) monotherapy . Note: PD-L1 expression level TPS equal to or greater than 1% determines eligibility for KEYTRUDA (pembrolizumab). PD-L1 expression level TPS equal to or greater than 50% may be of interest to treating physician and includes eligibility for KEYTRUDA monotherapy. . at [employer]. Marianna Osborne M.D. . Methodology: PD-L1 protein expression by immunohistochemistry is determined by using the Tumor Proportion Score (TPS), which is the percentage of at least 100 viable tumor cells showing partial or complete membrane staining at any intensity. . Intended Use: PD-L1, IHC 22C3 pharmDx is an FDA approved qualitative immunohistochemical assay using monoclonal mouse anti-PD-L1, Clone 22C3 intended for use in [address] [address] PATHOLOGY RPT PROCEDURE Name: PATITO SHERMAN Room #: 211-P [facility] IN M.R.#: [id number] Admission: 07/19/21 Date of : 40 Discharge: 11/27/20 Report #: [id number] Path Case #: [id number] the detection of PD-L1 protein in formalin-fixed, paraffin-embedded (FFPE) non-small cell lung cancer (NSCLC) tissues using EnVision FLEX visualization system on [employer] Link 48. PD-L1 22C3 pharmDx is indicated as an aid in identifying NSCLC patients for treatment with KEYTRUDA (pembrolizumab) or LIBTAYO (cemiplimab-rwlc) monotherapy. See the KEYTRUDA and LIBTAYOr product labels for specific clinical circumstances guiding PD-L1 testing. . References: Jhonny TS, Ledezma YL, Gina I, et al: Pembrolizumab versus chemotherapy for previously untreated, GT-O7-ojhtbngmzd, locally advanced or metastatic nonsmall-cell lung cancer (KEYNOTE-042): a randomised, open-label, controlled, phase 3 trial. Lancet 2019, 393 (58768), 1950-8263. . Steve RS, Monty P, Annamaria D-W, et al: Pembrolizumab versus docetaxel for previously treated, VX-H9-wssrvzdh, advanced dod-qshio-bllw lung cancer (KEYNOTE-010): a randomized controlled trial. Lancet 2016, 387 (47981), 6339-1128. . Elvi EB, Franca NA, Fabiola R, et al: Pembrolizumab for the treatment of tgj-xquul-nzlp lung cancer. N Engl J Med 2015, 372 (21), 3158-6357. . Elma Bolaños; Rory Munguia; Camila blake M.; et al. Cemiplimab monotherapy for first-line treatment of advanced xlu-nmwqn-dsdx lung cancer with PD-L1 of at Least 50%: A multicentre, open-label, global, phase 3, randomised, controlled trial. Lancet 2020, 404 (66480), 118-379. . LIBTAYO Package Insert . Disclaimer This Test was performed by [facility]. at [facility], [address]. [facility] is a business unit of [employer] a wholly-owned subsidiary of [employer]. . . Any image(s) that accompany this report is/are a health and safety representative image(s) only and should not be used to render a diagnosis. . This interpretation is contingent on the specimen and the clinical information received. . Known positive cells or tissues are employed with each test and examined to ensure positivity. Positive and negative internal controls, if present, react appropriately. . This analysis is an adjunct to the evaluation of the referring physician [address] [address] PATHOLOGY RPT PROCEDURE Name: PATITO SHERMAN Room #: 211-P DIS IN M.R.#: [id number] Admission: 11/16/20 Date of : 40 Discharge: 11/27/20 Report #: [id number] Path Case #: [id number] and does not represent a final diagnosis. . The immunohistochemistry tests performed at [facility]. were validated on tissue fixed in 10% neutral buffered formalin. The performance characteristics of the tests performed on tissue processed in other fixatives is not known. . This assay has not been validated on decalcified tissues. Results should be interpreted with caution if this specimen was decalcified given the likelihood of decreased staining or false negativity on decalcified specimens. . A complete copy of the report is on file. . Professional services performed by [employer]. at [facility] [address], [facility] [address], [place] [address]. Technical services performed by [employer]. at [facility] [address], [facility] [address], [place] [address]. . (IUV:amj 11/26/2020) [place]/11/26/2020 Addendum Electronically Signed by Keshia Mckeon MD, Pathologist Addendum #2: Special studies report received from [facility], [address] [place] [address], on case [id number], labeled with their number [id number], dated 11/28/2020. . Fluorescence in situ Hybridization (FISH) Report TargetGene Analysis . RESULT: Negative for ROS1 gene rearrangement . Specimen Type: Pleura Implant Tissue . Indication for Study: Metastatic adenocarcinoma, lung primary. . INTERPRETATION: Fluorescence in situ hybridization (FISH) analysis was performed on this patient's paraffin embedded formalin fixed tissue specimen using a dual color break apart DNA probes for ROS1 gene. . One hundred interphase nuclei were examined and no evidence of a ROS1 gene specific rearrangement (split signal pattern) was detected. 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 . Genetic changes other than those assayed here cannot be ruled out on the [address] [address] PATHOLOGY RPT PROCEDURE Name: PATITO SHERMAN Room #: 211-P DIS IN M.R.#: [id number] Admission: 11/16/20 Date of : 40 Discharge: 11/27/20 Report #: [id number] Path Case #: [id number] basis of this testing. Correlation with clinical and other pathological findings is suggested for a complete interpretation of these results. . A minimum of one hundred invasive tumor cells were manually examined from areas that were delineated by a pathologist from a corresponding H/E slide. . See report [id number] for further information. See report [id number] for further information. See report [id number] for further information. See Molecular report [id number] for further information. See Molecular report [id number] for further information. . The following TargetGene FISH analysis was performed on this patient's specimen: . Probe Detection Parameters Result ISCN ROS1 (6q22) Detects a rearrangement Not Detected nuc juan(3'ROS1,5'ROS1) of the ROS1 gene x1(3'ROS1 con 5'ROS1x1)[69/100] . at [facility]. Gertrude Singh, Ph.D., [facility] Director . Methodology: The patient specimen is processed onto a glass slide. Fluorescent DNA probe(s) is(are) applied to the cells on the slide under conditions of denaturation followed by hybridization. Stringency washes are applied and the slide is subsequently counterstained. A minimum of 100 interphase nuclei are analyzed unless otherwise indicated above. . References: Saad Victoria, Kingsley TSANG, et al. ROS1 rearrangements define a unique molecular class of lung cancers. J Clin Oncol, 2012;30:863-70. . Kingsley Lyons, Jarvis Y-J, et al. Crizotinib in ROS1-rearranged jww-nxqma-piiq lung cancer. N Engl J Med, 2014;371:1963-71 . Disclaimer(s): This assay has not been validated on decalcified tissues. Results should be interpreted with caution if this specimen was decalcified given the likelihood of false negativity on decalcified specimens. . Any image(s) that accompany this report is/are a health and safety representative image(s) only and should not be used to render a diagnosis. . This test was developed and its performance characteristics determined by [address] [address] PATHOLOGY RPT PROCEDURE Name: PATITO SHERMAN Room #: 211-P DIS IN M.R.#: [id number] Admission: 11/16/20 Date of : 40 Discharge: 11/27/20 Report #: [id number] Path Case #: [id number] [employer]. It has not been cleared or approved by the Food and Drug Administration. . Performing Labs: This Test was performed at [employer]. at [address] [place] [address], [facility] [address], [place], [address]. [facility] is a business unit of [employer] a wholly-owned subsidiary of [employer]. . A complete copy of the report is on file. . Professional services performed by [employer] at [address], [place] [address]. Technical services performed by [employer]. at [address], [place] [address]. . (IUV:amj 11/30/2020) . . . . . Special studies report received from [facility], [address] [place] [address], [address], [place], [address], on case [id number], labeled with their number [id number], dated 11/28/2020. . Fluorescence in situ Hybridization (FISH) Report ALK Analysis . RESULT: No Evidence of ALK Gene Rearrangement Detected by FISH nuc juan(ALKx2)(50) . Specimen Type: Pleura Implant Tissue . Specimen Fixative Type: 10% Neutral Buffered Formalin . Indication for Study: Metastatic adenocarcinoma, lung primary. . INTERPRETATION: Fluorescence in situ hybridization (FISH) analysis was performed on paraffin embedded tissue using an ALK Break Apart DNA probe (FDA approved kit, [employer]) for the detection of rearrangements involving the ALK gene. . Fifty interphase nuclei were examined and no evidence of ALK gene specific abnormalities associated with non-small cell lung cancer (NSCLC) was detected. [address] [address] PATHOLOGY RPT PROCEDURE Name: PATITO SHERMAN Room #: 211-P DIS IN M.R.#: [id number] Admission: 11/16/20 Date of : 40 Discharge: 11/27/20 Report #: [id number] Path Case #: [id number] . Genetic changes other than those assayed here cannot be ruled out on the basis of this testing. Correlation with clinical and pathological findings is suggested for a complete interpretation of the results. . A minimum of fifty invasive tumor cells were examined manually from areas that were delineated by a pathologist from a corresponding H/E slide. . See FISH report [id number] for further information. See report [id number] for further information. See report [id number] for further information. See Molecular report [id number] for further information. See Molecular report [id number] for further information. . at [facility]. Gertrude Singh, Ph.D., [facility] Director . . Methodology: FISH was performed using ALK Break Apart FISH Probe Kit (FDA approved, [employer] A minimum of fifty invasive tumor cells were examined from areas that were delineated by a Pathologist from a corresponding H/E slide. A classification of each nucleus as positive or negative is recorded according to head batcher's instruction. The results are calculated as a percentage of the total positive cells to total cell analyzed. The normal cutoff was established as 15% using NSCLC FFPE tissue specimen. A negative result is reported when a sample with <15% rearranged cells and a positive result is defined when a sample shown greater than or equal to 15% cells with ALK gene rearrangements. A result is considered uninformative when there are less than 50 invasive tumor cells for FISH analysis. . Intended Use: The ALK Break Apart FISH Probe procedure is a qualitative test to detect rearrangements involving the ALK gene via fluorescence in situ hybridization (FISH) in FFPE NSCLC tissue specimens to aid in identifying those patients eligible for treatment with XALKOR (crizotinib). It is intended for use only on 10% neutral buffered formalin fixed paraffin-embedded NSCLC tissue. The optimal fixation time for tissue is 6-48 hours. The test is for prescription use only. . Disclaimer(s): This assay has not been validated on decalcified tissues. Results should be interpreted with caution if this specimen was decalcified given the likelihood of false negativity on decalcified specimens. . Any image(s) that accompany this report is/are a health and safety representative image(s) [address] [address] PATHOLOGY RPT PROCEDURE Name: PATITO SHERMAN Room #: 211-P DIS IN M.R.#: [id number] Admission: 11/16/20 Date of : 40 Discharge: 11/27/20 Report #: [id number] Path Case #: [id number] only and should not be used to render a diagnosis. . Performing Labs: This Test was performed at [facility]. at [address] [place] [address], [facility] [address], [place], [address]. [facility] is a business unit of [employer] a wholly-owned subsidiary of [employer]. . A complete copy of the report is on file. . Professional services performed by [employer] at [facility] [facility] [address], [place] [address]. Technical services performed by [employer]. at [facility] [address], [facility] [address], [place] [address]. . (IUV:amj 11/30/2020) . . . . . Special studies report received from [facility], [address] [place] [address], [facility] [[email or web address] [address], [place], [address], on case [id number], labeled with their number [id number], dated 11/30/2020. . KRAS Mutation Detection by PCR-SNAPSHOT Analysis . 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 Indication for Study: Metastatic Lung Carcinoma . Specimen Type: Paraffin-Embedded Tissue-Pleura . Comments: Results should be interpreted in conjunction with clinical and other laboratory findings for the most accurate interpretation. . KRAS is a guanosine triphosphate (GTP) binding protein involved in downstream receptor signaling which is critical for cell proliferation, survival and differentiation. Mutations in the KRAS oncogene are frequently found in human cancers. They are seen in pancreatic (approximately 57%), colorectal (approximately 33%), lung (approximately 17%), biliary tract (approximately 31%), and thyroid cancer (approximately 2%). This assay will detect KRAS mutations in exons 2, 3 and 4 (see mutation list below), allowing the determination of drug response. . [address] [address] PATHOLOGY RPT PROCEDURE Name: PATITO SHERMAN Room #: 211-P [facility] IN ..#: [id number] Admission: 11/16/20 Date of : 40 Discharge: 11/27/20 Report #: [id number] Path Case #: [id number] KRAS mutations in NSCLC are predictive of lack of therapeutic efficacy with EGFR tyrosine kinase inhibitors (erlotinib and gefitinib). Patients with mutations appear to have a shorter survival than patients with wild-type KRAS. . See report [id number] for further information. See FISH report [id number] for further information. See report [id number] for further information. See report [id number] for further information. See Molecular report [id number] for further information. . Analytical Results: KRAS Codon Detection Paramaters Result Nucleotide Amino Mutations Change Acid Change Exon 2 Codon 12 G12A, G12C, G12D, Detected 34G>T Ypf21Hpy G12R, G12S, G12V Codon 13 G13A, G13C, G13D, Not G13R, G13S, G13V Detected Exon 3 Codon 59 A59E, A59G, A59P, Not A59S, A59T, A59V Detected Codon 61 Q61E, Q61H, Q61K, Not Q61L, Q61P, Q61R, Detected Q61X Exon 4 Codon 117 K117N Not Detected Codon 146 A146E, A146G, A146P, Not A146S, A146T, A146V Detected . at [facility]. Smith Emmanuel, Ph.D., CARLOS ENRIQUE DABMG, DABCC, DLm, M(ASCP)cm, VALERIE(ASC)cm . Methodology: Genomic DNA was isolated from the provided tumor specimen. Exons 2, 3 and 4 of the KRAS gene were subjected to multiplex PCR and SNaPShot primer extension for mutation detection. This assay is able to detect 5% mutation in a background of wild-type DNA. . Intended Use: The detection of a KRAS mutation aids in identification of patients with worse prognosis and who may not respond to certain cancer therapies. . References: 1. NCCN Clinical Practice Guidelines in Oncology: Colon Cancer v2.2015. 2. NCCN Clinical Practice Guidelines in Oncology: Rectal Cancer v2.2015. 3. NCCN Clinical Practice Guidelines in Oncology: Non-Small Cell Lung Cancer v3.2015. [address] [address] PATHOLOGY RPT PROCEDURE Name: PATITO SHERMAN Room #: 211-P [facility] IN ..#: [id number] Admission: 11/16/20 Date of : 40 Discharge: 11/27/20 Report #: [id number] Path Case #: [id number] 4. Sandra Park et al. (2012). Addition of cetuximab to chemotherapy as first-line treatment for KRAS wild-type metastatic colorectal cancer: pooled analysis of the CRYSTAL and OPUS randomized clinical trials. Eur J Cancer 48(10):6031-3303. 5. Srikanth MOTT et al. (2010). Randomized phase III study of panitumumab with fluorouracil, leucovorin, and oxaliplatin (FOLFOX4) versus FOLFOX4 alone as first-line treatment in patients with previously untreated metastatic colorectal cancer: The PRIME study. J Clin Oncol 28(31):4684-026. 6. Su Guillermo et al. (2013). KRAS mutations in lung cancer. Clin Lung Cancer. 14(3):205-14. 7. Nirav YAnalilia et al. (2011) Jose oncogenes: weaving a tumorigenic web. Nature Reviews Cancer 11: 761-774. . Disclaimer(s): This test was developed and its performance characteristics determined by [employer]. It has not been cleared or approved by the Food and Drug Administration. . Performing Labs: This Test was performed at [facility]. at [address] [place] [address]. [facility] is a business unit of [employer] a wholly-owned subsidiary of [employer]. . A complete copy of the report is on file. . Professional services performed by [employer]. at [address] [place] [address]. Technical services performed by [employer]. at [address] [place] [address]. . (IUV:any 11/30/2020) . . . . . Special studies report received from [facility], [address] [place] [address], [address], [place], [address], on case [id number], labeled with their number [id number], dated 11/30/2020. . BRAF Mutation Detection by PCR-SNAPSHOT Analysis . INTERPRETATION: Negative for a V600 BRAF mutation . [facility] [address] [address] PATHOLOGY RPT PROCEDURE Name: PATITO SHERMAN Room #: 211-P [facility] IN [facility].#: [id number] Admission: 11/16/20 Date of : 40 Discharge: 11/27/20 Report #: [id number] Path Case #: [id number] Indication for Study: Metastatic Lung Carcinoma . Specimen Type: Paraffin-Embedded Tissue-Pleura . Comments: Somatic mutations in the BRAF oncogene are frequently found in human cancers, such as melanoma (approximately 40-60%), colorectal (approximately 5-15%), lung (approximately 1-3%), ovary (approximately 35%), thyroid carcinomas (approximately 45%) and hairy cell leukemia (approximately 100% in limited studies). Over 90% of the mutations are the V600E (1799T>A) mutation, but other V600 mutations have been reported. A negative result does not rule out the presence of other non-V600 mutations. Correlation with other clinical findings is needed for the most accurate interpretation. . This test detects multiple V600 mutations in BRAF, including V600E, V600K and other V600 variants. . See report [id number] for further information. See FISH report [id number] for further information. See report [id number] for further information. See Molecular report [id number] for further information. See Molecular report [id number] for further information. . Analytical Results: Assay Type Detection Parameters Result BRAF Gene Mutation Exon 15 V600 Negative . at [facility]. Smith Emmanuel, Ph.D., CARLOS ENRIQUE DABMG, DABCC, DLMcm, M(ASCP)cm, VALERIE(ASCP)cm . Methodology: Genomic DNA was isolated from the provided specimen. Exon 15 of the BRAF gene was subjected to PCR and SNaPShot multiplex primer extension for mutation detection. This assay is able to detect 5% mutation in a background of wild-type DNA. . Intended Use: The detection of a BRAF V600 gene mutation aids in the specific diagnosis of certain cancers, such as hairy cell leukemia, and help to identify patients with worse prognosis and who may be responsive to certain therapies in a variety of cancers. . References: Suman De Jesus et al. (2014) Integrating molecular biomarkers into current clinical management in melanoma. Methods Mol. Biol. . . [address] [address] PATHOLOGY RPT PROCEDURE Name: PATITO SHERMAN Room #: 211-P DIS IN M.R.#: [id number] Admission: 11/16/20 Date of : 40 Discharge: 11/27/20 Report #: [id number] Path Case #: [id number] Rory Doran et al. (2014) Resistance to anti-EGFR therapy in colorectal cancer: from heterogeneity to convergent evolution. Cancer Disco. 4:1-12. . NCCN Clinical Practice Guidelines in OncologyTM for Colon Cancer v.2 2015. . NCCN Clinical Practice Guidelines in OncologyTM for Hairy Cell Leukemia. v.4 2014. . NCCN Clinical Practice Guidelines in OncologyTM for Rectal Cancer v.2 2015. . NCCN Clinical Practice Guidelines in OncologyTM for Thyroid Carcinoma. v.2 2014. . NCCN Clinical Practice Guidelines in OncologyTM for Non-Small Cell Lung Cancer. v.1 2014. . Indy Ware et al. (2012) Lung cancers with acquired resistance to EGFR inhibitors occasionally harbor BRAF gene mutations but lack mutations in KRAS, NRAS, or MEK1. Proc. Natl. Acad. Sci. USA. 109:A3156-Z8886. . Carmen S. et al. (2013) Clinicopathological relevance of BRAF mutations in human cancer. Pathology 45: 346-356. . Nilson Pate. and Jaime Franks. (2010) BRAF mutation testing in colorectal cancer. Arch. Pathol. Lab. Med. [phone]. . Disclaimer(s): This test was developed and its performance characteristics determined by [employer]. It has not been cleared or approved by the Food and Drug Administration. . Performing Labs: This Test was performed at [employer]. at [address] [place] [address], [address]. [facility] is a business unit of [employer] a wholly-owned subsidiary of [employer]. . A complete copy of the report is on file. . Professional services performed by [employer] at [facility] [address] [address]. Technical services performed by [employer]. at [address] [place] [address], [place] [address]. . (IUV:amj 11/30/2020) . [facility] [place] [address] [address] [place] [address] PATHOLOGY RPT PROCEDURE Name: PATITO SHERMAN Room #: 211-P [facility] IN M.R.#: [id number] Admission: 11/16/20 Date of : 40 Discharge: 11/27/20 Report #: [id number] Path Case #: [id number] AZJ/11/30/2020 Addendum Electronically Signed by Keshia Mckeon MD, Pathologist Addendum #3: Special studies report received from [facility], [address] [place] [address], [address], [place], [address], on case [id number], labeled with their number [id number], dated 12/03/20. . EGFR Gene Mutation Analysis . INTERPRETATION: Negative for EGFR Mutation. . Indication for Study: Metastatic Lung Carcinoma . Specimen Site and Type: Paraffin-Embedded Tissue-Pleura . Nucleotide Change: . Amino Acid Change: . Comments: No mutations were detected within the analyzed region of the EGFR gene in the sample provided for analysis. Less than 5% of non-small cell lung carcinoma patients without identifiable mutations are reported to be responsive to EGFR tyrosine kinase inhibitor therapies. Results should be interpreted in conjunction with clinical and other laboratory findings for the most accurate interpretation. . A subgroup of non-small cell lung cancer (NSCLC) patients has shown clinical responsiveness to the epidermal growth factor receptor (EGFR) inhibitors gefitinib (IRESSA) and erlotinib (Tarceva), including never smokers, individuals of ethnicity, and those with adenocarcinoma histology. In the majority of patients with highly responsive tumors, the tumor contains a somatic mutation within the EGFR tyrosine kinase domain. The presence of a somatic EGFR mutation is significantly associated with response to gefitinib and erlotinib, and is strongly predictive of prolonged survival in NSCLC patients. . T790M mutation had been tested but was not detected in this submitted specimen. . This assay is able to detect 5% mutation in a background of wild-type DNA. . . See report [id number] for further information. See FISH report [id number] for further information. See report [id number] for further information. See report [id number] for further information. See Molecular report [id number] for further information. [address] [address] PATHOLOGY RPT PROCEDURE Name: PATITO SHERMAN Room #: 211-P [facility] IN [facility].#: [id number] Admission: 11/16/20 Date of : 40 Discharge: 11/27/20 Report #: [id number] Path Case #: [id number] . . at [employer] Smith Emmanuel, Ph.D., CARLOS ENRIQUE DABMG, DABCC, DLMcm, M(ASCP)cm, VALERIE(ASCP)cm . Methodology: Genomic DNA was isolated from the provided tumor specimen. Exons 18 through 21 of the EGFR gene were subjected to SNaPShot multiplex PCR and primer extension for mutation detection. . Table: This Assay Can Detect the Following Mutations EGFR EGFR Codon Mutation Approximate % of all EGFR Exon Mutations 18 E709 E709K,E709Q 1% G719 G719S,G719C,G719A,G719D 2-5% 19 Insertions 18bp ins 1% Deletions 9,12,15,18,24 bp del 45% 20 Insertions 3,6,8,12 bp ins 5-10% S768 S768I 1-2% R776 R776C <1% T790 T790M 2% 21 L858 L858R 40% A859 A859T <1% L861 L861Q,L861R 2-5% * This Assay does not distinguish between the 18bp insertion and deletions at nucleotide position 2235 and 2237 . References: 1. Clark PA, Mary JA, Rangel BE. Epidermal Growth Factor Receptor Mutations in Qok-Xrape-Zmox Lung Cancer: Implications for Treatment and Tumor Biology. J. Clin. Oncol. 2005; 23:3012-3601. 2. Kristen MONTIEL et al. A Platform for Rapid Detection of Multiple Oncogenic Mutations with Relevance to Targeted Therapy in Dpq-Visff-Vrcx Lung Cancer. J. Mol. Diagn. 2011;13(1):74-84. . Disclaimer(s): Any image(s) that accompany this report is/are a health and safety representative image(s) only and should not be used to render a diagnosis. . This test was developed and its performance characteristics determined by [employer] It has not been cleared or approved by the Food and Drug Administration. . Performing Labs: This Test was performed at [employer] at [address], [address]. [facility] [address] [place] [address] PATHOLOGY RPT PROCEDURE Name: PATITO SHERMAN Room #: 211-P [facility] IN M.R.#: [id number] Admission: 11/16/20 Date of : 40 Discharge: 11/27/20 Report #: [id number] Path Case #: [id number] [facility] is a business unit of [employer] a wholly-owned subsidiary of [employer]. . A complete copy of the report is on file. . Professional services performed by [employer] at [address], [place] [address]. Technical services performed by [employer]. at [address], [place] [address]. . (IUV:amj 12/03/2020) . AZJ/12/03/2020 Addendum Electronically Signed by Keshia Mckeon MD, Pathologist . 02 Electronically signed: . Keshia Mckeon MD, Pathologist NPI- [id number] . 01 Gross description: . A. Received in formalin labeled "Patito Sherman, pleural implant" are multiple fragments of yellow-lozano soft tissue measuring in aggregate 2.5 x 1.3 x 0.5 cm. The larger portions are sectioned and the specimen is submitted entirely in cassettes A1-A2. . B. Received in formalin labeled "Patito Sherman, lung nodule" is a wedge biopsy of lozano-brown possible lung parenchyma measuring 3.5 x 1.0 x 0.5 cm. The margin is closed with a staple line measuring 3.2 cm in length. The pleura is smooth with an adherent yellow-lozano tumor nodule measuring 0.7 x 0.5 x 0.5 cm, located 0.7 cm from the resection margin. The staple line is removed and the underlying margin is inked black. The specimen is serially sectioned and submitted entirely in B1-B2. ([facility]; 11/19/2020) [facility] 11/19/2020 0923 Local . 02 Pathologist provided ICD-10: C34.90, C78.2 . 02 CPT . 003421, 030138 Specimen Comment: A courtesy copy of this report has been sent to [phone] Specimen Comment: [phone] Specimen Comment: Report sent to / DR WEATHERS Performed at: 01 [facility] [address] [facility] [address], [place] [address] [address] [place] [address] PATHOLOGY RPT PROCEDURE Name: WHITPATITO J Room #: 211-P DIS IN M.R.#: [id number] Admission: 11/16/20 Date of : 40 Discharge: 11/27/20 Report #: [id number] Path Case #: [id number] MD Lucas Tipton MD Phone: [phone] Performed at: [address] [id number] MD Keshia Mckeon MD Phone: [phone]
== END 2020-11-27 17:26 | disposition home or self-care (01) | DRG 166 ==
LOC: ER 12:16 → 4W 14:36 → EROBS 14:36 → 4W 17:03 → 4E 11-18 08:05 → ICU 11-18 11:30 → 2N 11-21 16:17
PROVIDERS: Emergency Medicine; Internal Medicine; Physician Assistant; Surgery Vascular Surgery; ADMIT Hospitalist; ATTEND Hospitalist
DX: C34.90 Malignant neoplasm of unspecified part of unspecified bronchus or lung (principal); J96.21 Acute and chronic respiratory failure with hypoxia; J91.0 Malignant pleural effusion; B37.0 Candidal stomatitis; I10 Essential (primary) hypertension; E11.9 Type 2 diabetes mellitus without complications; E78.5 Hyperlipidemia, unspecified; E03.9 Hypothyroidism, unspecified; E83.42 Hypomagnesemia; D64.9 Anemia, unspecified; D72.829 Elevated white blood cell count, unspecified; E87.6 Hypokalemia; R91.1 Solitary pulmonary nodule; Z88.6 Allergy status to analgesic agent; Z88.8 Allergy status to other drugs, medicaments and biological substances; Z90.710 Acquired absence of both cervix and uterus; Z80.3 Family history of malignant neoplasm of breast; Z87.891 Personal history of nicotine dependence; Z20.822 Contact with and (suspected) exposure to COVID-19
CPT/HCPCS: 10045; 10078; 10081; 50010; 50101; 50386; 50403; 50455; 50739; 52265; 54118; 56462; 56524; 56525; 56526; 56528; 58585; 58870; 62110; 62900; 65020; 65105; 65129; 70005